=== PATIENT | male | born 1955 | race Caucasian/White ===

== ENCOUNTER 2018-02-26 08:02 | Inpatient (IN) | payer BC ==
[~2018-02-26] VITALS: Ht 175.5 cm; Wt 134.0 kg
[2018-02-26] VITALS (19 sets, daily range): BP systolic 74–139; BP diastolic 36–77; PULSE 48–126; RESP 26–44; TEMP 95.3–100.6; O2SAT 55–100
[2018-02-26] MEDS ORDERED: PROPOFOL 500 MG/50 ML INJ 50 ML ONE (08:09)
--- NOTE | 2018-02-26 08:30 | RADRPT ---
EXAM DATE/TIME: 02/26/2018 08:14 [facility] COMPARISON: No previous studies available for comparison. INDICATIONS : ET tube placement, unresponsive. MEDICAL HISTORY : Unresponsive SURGICAL HISTORY : Unresponsive ENCOUNTER: Initial ACUITY: 1 day PAIN SCORE: Non-responsive. LOCATION: Bilateral chest FINDINGS: AP supine portable view the chest demonstrates an endotracheal tube with the tip 2 cm beyond the leve l of the clavicles 3 cm superior to the lizbeth. There is a nasogastric tube overlying the midline wit h the proximal port well above the level of the gastroesophageal junction. Recommend advancement by a pproximately 8 cm. The lungs are mildly hypoinflated but clear. Heart size appears grossly normal given degree of hypoin flation. Osseous structures are unremarkable. CONCLUSION: 1. Endotracheal tube overlying the trachea with the tip 2 cm down the level of the clavicles. 2. Nasogastric tube positioned over the midline esophagus with the proximal port well above the level of the gastroesophageal junction. Recommend interval advancement at least 8 cm. 3. No evidence of acute cardiac pulmonary disease.. Aisha Brannon MD on February 26, 2018 at 8:25 Board Certified Radiologist. This report was verified electronically.
[2018-02-26 08:42] LABS: AUTOMATED NEUTROPHIL # 6.6 TH/MM3 (1.8-7.7); BASOPHIL # 0.1 TH/MM3 (0-0.2); BASOPHIL % 0.3 % (0.0-2.0); EOSINOPHIL # 0.1 TH/MM3 (0-0.4); EOSINOPHIL % 0.9 % (0.0-4.0); HEMATOCRIT 55.5 % (39.0-51.0); HEMOGLOBIN 18.2 GM/DL (13.0-17.0); LYMPH % 48.4 % (9.0-44.0); LYMPHOCYTE # 7.5 TH/MM3 (1.0-4.8); MEAN CELL VOLUME 97.6 FL (80.0-100.0); MEAN CORPUSCULAR HGB CONC 32.8 % (32.0-36.0); MEAN PLATELET VOLUME 10.7 FL (7.0-11.0); MONOCYTE # 1.2 TH/MM3 (0-0.9); NEUT % 42.4 % (16.0-70.0); PLATELET COUNT 143 TH/MM3 (150-450); RED BLOOD COUNT 5.69 MIL/MM3 (4.50-5.90); RED CELL DISTRIBUTION WIDTH 13.9 % (11.6-17.2); WHITE BLOOD COUNT 15.6 TH/MM3 (4.0-11.0)
[2018-02-26 08:47] LABS: ALT (GPT) 91 U/L (12-78)
[2018-02-26 08:53] LABS: ALBUMIN 3.8 GM/DL (3.4-5.0); ALKALINE PHOSPHATASE 101 U/L (45-117); AST (GOT) 65 U/L (15-37); BICARBONATE 14.6 MEQ/L (21.0-32.0); BLOOD UREA NITROGEN 13 MG/DL (7-18); CALCIUM 9.1 MG/DL (8.5-10.1); CHLORIDE 103 MEQ/L (98-107); CREATININE 1.35 MG/DL (0.60-1.30); GLOMERULAR FILTRATION RATE 53 ML/MIN (>89); GLUCOSE,RANDOM 306 MG/DL (74-106); SODIUM (NA) 137 MEQ/L (136-145); TOTAL BILIRUBIN ADULT 0.6 MG/DL (0.2-1.0); TOTAL PROTEIN 7.4 GM/DL (6.4-8.2); TROPONIN I LESS THAN 0.02 NG/ML (0.02-0.05)
[2018-02-26 09:45] LABS: BANDS 2 % (0-6); BASOPHILS 2 % (0-2); METAMYELOCYTES 2 % (0-1); MONOCYTES 7 % (0-8); NEUTROPHIL # MANUAL DIFF 6.7 TH/MM3 (1.8-7.7); POLYS (SEG NEUTROPHILS) 39 % (16-70)
[2018-02-26 09:46] LABS: LYMPHOCYTES 46 % (9-44); SMUDGE CELLS PRESENT PRESENT
[2018-02-26] MEDS ORDERED: TERBUTALINE INJ 1 MG/ML AMP SQ PRN ×3 (10:15→23:00)
[2018-02-26] MEDS ORDERED: CHLORHEXIDINE GLUCONATE 2 % 1 PACK (2 CLOTHS) TOP PRN (10:15)
[2018-02-26] MEDS ORDERED: NURSING INFORMATION XX SCH (10:15)
[2018-02-26] MEDS ORDERED: MIDAZOLAM 100 MG/100 ML INJ 100 ML IV PRN (10:15)
[2018-02-26] MEDS ORDERED: RESP: ALBUTEROL 2.5 MG/IPRATROPIUM 0.5 MG NEB (PRN) INH (10:15)
[2018-02-26] MEDS ORDERED: MORPHINE SULFATE 4 MG/ML INJ IV PUSH PRN (10:15)
--- NOTE | 2018-02-26 10:18 | PD.PROCEDR ---
Central Line Procedure REASON FOR PROCEDURE Central venous access PROCEDURE PERFORMED Central line placement: Right femoral central line placment CONSENT Emergency procedure during cardiac arrest ANESTHESIA Local injection of 1% Lidocaine DESCRIPTION OF THE PROCEDURE The patient was placed in appropriate position. The area was exposed and cleansed with ChloraPrep, times two. Unable to use. Precautions due to emergency nature of the situation and cardiac arrest, except sterile gloves, cap and mask. On single attempt, the introducer needle was inserted with negative pressure in syringe and venous flash was obtained. The guide wire was then advanced without any restriction and the needle was removed. The dilator was used without any complications. Using Seldinger technique the 20 CM 7F triple lumen catheter was advanced over the guide wire to a depth of 18centimeters. The guide wire was removed. All ports were aspirated with dark venous blood return and flushed easily with sterile saline. All ports were capped. Antibiotic disc was placed around central line at puncture site. The central line was secured to the skin with two interrupted 2.0 silk sutures. The area was bandaged with sterile see-through central line bandage. COMPLICATIONS: No apparent complications ESTIMATED BLOOD LOSS: Less than 1 cc. Teddy Whipple MD February 26, 2018 10:17
--- NOTE | 2018-02-26 10:21 | PD.PROCEDR ---
Procedure Note Procedure Procedure- US guided right femoral arterial line placement indication- invasive hemodynamic monitoring, severe cardiogenic and obstructive shock Description of procedure: The patient was placed in supine, position. The area was exposed and cleansed with ChloraPrep, times two. Unable to use full sterile precautions except face mask, and sterile gloves. US was used to visualize right femoral artery On single attempt, the introducer needle was inserted with negative pressure in syringe and arterial flash was obtained. The guide wire was then advanced without any restriction and the needle was removed. Using Seldinger technique the arterial catheter was advanced over the guide wire. The guide wire was removed. Good arterial waveform obtained. Antibiotic disc was placed around arterial line at puncture site. The arterial line was secured to the skin with one interrupted silk sutures. The area was bandaged with sterile see-through central line bandage. Teddy Whipple MD February 26, 2018 10:21
[2018-02-26 10:27] LABS: BILIRUBIN, URINE NEG (NEG); BLOOD, URINE NEG (NEG); GLUCOSE,URINE 1000 mg/dL (NEG); KETONE, URINE TRACE mg/dL (NEG); MUCUS URINE FEW /lpf (OCC); NITRITE,URINE NEG (NEG); SPERM, URINE RARE; TRANSITIONAL EPI CELLS, URINE <1 /hpf; URINE COLOR LIGHT-YELLOW (YELLW/STRAW); URINE LEUKOCYTE ESTERASE NEG (NEG)
[2018-02-26] MEDS ORDERED: MIDAZOLAM HCL 5 MG/ML VIAL (1 ML) ONE ×2 (10:38→12:57)
[2018-02-26] MEDS ORDERED: HEPARIN 25,000 UNITS-D5W 250 ML - PREMIX IV PRN ×2 (10:45→15:30)
[2018-02-26] MEDS: EPINEPHrine (1:1000) INJ 2 MG in DEXTROSE 5% IN WATER INJ 250 ML IV PRN ×10 (11:00→23:49)
[2018-02-26] MEDS ORDERED: CALCIUM CHLORIDE INJ 2 GM in DEXTROSE 5% IN WATER 100ML INJ 100 ML IV ONE ×2 (11:15)
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
[2018-02-26] MEDS: EPOPROSTENOL NEB SOLUTION 50 NG/KG/MIN 100 ML NEB SCH ×2 (11:25)
[2018-02-26] MEDS: SODIUM BICARBONATE 8.4% INJ 150 MEQ in WATER STERILE FOR INJ 850 ML IV SCH ×3 (11:26→23:49)
[2018-02-26] MEDS ORDERED: SUCCINYLCHOLINE CHLORIDE 200 MG/10 ML VIAL IV PUSH ONE (11:45)
[2018-02-26] MEDS ORDERED: ETOMIDATE 20 MG/10 ML VIAL IV PUSH ONE (11:45)
[2018-02-26] MEDS ORDERED: NOREPINEPHRINE-DEXTROSE DRIP 250 ML IV ONE (11:59)
[2018-02-26] MEDS: MIDAZOLAM 50 MG/50 ML INJ 50 ML IV PRN ×2 (12:02→20:42)
[2018-02-26] MEDS: PHENYLEPHRINE INJ 40 MG in DEXTROSE 5% IN WATE 500 ML INJ 496 ML IV PRN ×10 (12:02→23:49)
[2018-02-26 12:15] LABS: AUTOMATED NEUTROPHIL # 23.1 TH/MM3 (1.8-7.7); BASOPHIL # 0.3 TH/MM3 (0-0.2); EOSINOPHIL # 0.2 TH/MM3 (0-0.4); EOSINOPHIL % 0.6 % (0.0-4.0); HEMATOCRIT 47.3 % (39.0-51.0); HEMOGLOBIN 15.2 GM/DL (13.0-17.0); LYMPH % 24.1 % (9.0-44.0); LYMPHOCYTE # 7.8 TH/MM3 (1.0-4.8); MEAN CELL VOLUME 98.4 FL (80.0-100.0); MEAN CORPUSCULAR HEMOGLOBIN 31.5 PG (27.0-34.0); MEAN PLATELET VOLUME 9.8 FL (7.0-11.0); MONO % 3.4 % (0.0-8.0); MONOCYTE # 1.1 TH/MM3 (0-0.9); NEUT % 70.9 % (16.0-70.0); PLATELET COUNT 125 TH/MM3 (150-450); RED BLOOD COUNT 4.81 MIL/MM3 (4.50-5.90); RED CELL DISTRIBUTION WIDTH 14.3 % (11.6-17.2); WHITE BLOOD COUNT 32.6 TH/MM3 (4.0-11.0)
[2018-02-26 12:50] LABS: BANDS 11 % (0-6); CORRECTED NUCLEATED RBC 2 /100 WBC (0-0); LYMPHOCYTES 26 % (9-44); MONOCYTES 5 % (0-8); MYELOCYTES 2 % (0-0); NEUTROPHIL # MANUAL DIFF 22.5 TH/MM3 (1.8-7.7); NUCLEATED RED BLOOD CELL 2 (0-0); POLYS (SEG NEUTROPHILS) 56 % (16-70)
[2018-02-26 12:52] LABS: SMUDGE CELLS PRESENT PRESENT
[2018-02-26] MEDS: MILRINONE INJ 20 MG in SODIUM CHLORIDE 0.9% INJ 80 ML IV SCH ×2 (12:55→20:41)
[2018-02-26] MEDS: RESP: ALBUTEROL 2.5 MG/IPRATROPIUM 0.5 MG NEB (SCH) INH ×3 (12:57→20:11)
[2018-02-26 12:59] LABS: ALBUMIN 2.8 GM/DL (3.4-5.0); ALKALINE PHOSPHATASE 166 U/L (45-117); ALT (GPT) 1648 U/L (12-78); AST (GOT) 1759 U/L (15-37); BICARBONATE 16.2 MEQ/L (21.0-32.0); BLOOD UREA NITROGEN 18 MG/DL (7-18); CALCIUM 8.8 MG/DL (8.5-10.1); CHLORIDE 100 MEQ/L (98-107); CREATININE 1.94 MG/DL (0.60-1.30); GLOMERULAR FILTRATION RATE 35 ML/MIN (>89); GLUCOSE,RANDOM 393 MG/DL (74-106); MAGNESIUM 2.5 MG/DL (1.5-2.5); SODIUM (NA) 141 MEQ/L (136-145); TOTAL PROTEIN 5.6 GM/DL (6.4-8.2)
[2018-02-26] MEDS: FAMOTIDINE 20 MG/2 ML VIAL IV PUSH SCH ×2 (13:07→19:59)
--- NOTE | 2018-02-26 13:35 | ECHRPT ---
Indication: Pulmonary Embolism CONCLUSIONS The left ventricular systolic function is normal with an estimated ejection fraction of 55%. Mild concentric left ventricular hypertrophy. Normal left ventricular size. The right ventricle is severely dilated. The right ventricular systoilc function is severely decreased. There is moderate tricuspid regurgitation. The estimated pulmonary arterial pressure is 67 mmHg. The inferior vena cava is dilated. BP: 102 / 53 HR: Rhythm: MEASUREMENTS (Male / Female) Normal Values Technical Quality:Technically difficult study 2D ECHO LV Diastolic Diameter PLAX 3.9 cm 4.2 - 5.9 / 3.9 - 5.3 cm LV Systolic Diameter PLAX 3.0 cm IVS Diastolic Thickness 1.3 cm 0.6 - 1.0 / 0.6 - 0.9 cm LVPW Diastolic Thickness 1.3 cm 0.6 - 1.0 / 0.6 - 0.9 cm LV Relative Wall Thickness 0.7 RV Internal Dim ED PLAX 4.0 cm LVOT Diameter 2.1 cm LA Systolic Diameter LX 3.0 cm 3.0 - 4.0 / 2.7 - 3.8 cm M-MODE Aortic Root Diameter MM 2.9 cm LA Systolic Diameter MM 3.9 cm LA Ao Ratio MM 1.3 AV Cusp Separation MM 2.1 cm DOPPLER AV Peak Velocity 117.0 cm/s AV Peak Gradient 5.5 mmHg LVOT Peak Velocity 90.3 cm/s LVOT Peak Gradient 3.3 mmHg AV Area Cont Eq pk 2.7 cm MV Area PHT 3.7 cm Mitral E Point Velocity 49.7 cm/s Mitral A Point Velocity 69.4 cm/s Mitral E to A Ratio 0.7 TR Peak Velocity 376.0 cm/s TR Peak Gradient 56.6 mmHg Right Atrial Pressure 10.0 mmHg Pulmonary Artery Systolic Pressu 66.6 mmHg Right Ventricular Systolic Press 66.6 mmHg FINDINGS LEFT VENTRICLE The left ventricular systolic function is low normal with an estimated ejection fraction of 55%. Mild concentric left ventricular hypertrophy. Normal left ventricular size. RIGHT VENTRICLE The right ventricle is severely dilated. The right ventricular systoilc function is severely decreased. LEFT ATRIUM The left atrial size is normal. RIGHT ATRIUM The right atrial size is normal. ATRIAL SEPTUM Normal atrial septal thickness without atrial level shunting by limited color doppler interrogation. AORTA The aortic root and proximal ascending aorta are normal in size on limited imaging. MITRAL VALVE Structurally normal mitral valve. No mitral valve stenosis or regurgitation. AORTIC VALVE Trileaflet aortic valve. No aortic valve stenosis or regurgitation. TRICUSPID VALVE Structurally normal tricuspid valve. There is moderate tricuspid regurgitation. The estimated pulmonary arterial pressure is 66.6 mmHg. PULMONARY VALVE No pulmonary valve regurgitation or stenosis. VESSELS The inferior vena cava is dilated. PERICARDIUM No pericardial effusion. Jenni Sheriff MD, FACC (Electronically Signed) Final Date:26 Feb 2018 13:33
[2018-02-26] MEDS: NOREPINEPHRINE 4 MG/D5W 250 ML IV PRN ×4 (14:29→22:20)
[2018-02-26] MEDS ORDERED: ROCURONIUM INJ 50 MG/5 ML VIAL ONE (15:09)
[2018-02-26] MEDS ORDERED: SODIUM BICARBONATE 8.4% INJ 50 MEQ/50 ML SYR ONE ×3 (15:11→17:21)
--- NOTE | 2018-02-26 15:30 | RADRPT ---
EXAM DATE/TIME: 02/26/2018 13:10 [facility] COMPARISON: No previous studies available for comparison. INDICATIONS : Bilateral leg swelling. MEDICAL HISTORY : Hypertension. Diabetes. SURGICAL HISTORY : None. ENCOUNTER: Initial ACUITY: 1 day PAIN SCORE: 0/10 LOCATION: Bilateral legs. TECHNIQUE: Venous ultrasound of the left and right leg was performed from the inguinal ligament to the proximal calf. Real-time, color Doppler and spectral tracing, compression and augmentation techniques were us ed. FINDINGS: RIGHT LEG: There is eccentric thrombus which is nearly occlusive in the right common femoral vein, extending to some extent into the proximal deep femoral vein and superficial femoral vein however not propagating down the legs any additional significant extent. LEFT LEG: There is normal compressibility of the deep venous system from the inguinal region to the proximal ca lf. No echogenic clot is seen in the lumen of the common femoral, femoral, popliteal, and posterior tibial veins. CONCLUSION: Near occlusive thrombus in the right common femoral vein. Left leg negative for DVT Sarabjit Arias MD on February 26, 2018 at 15:24 Board Certified Radiologist. This report was verified electronically.
--- NOTE | 2018-02-26 15:44 | RADRPT ---
EXAM DATE/TIME: 02/26/2018 14:10 [facility] COMPARISON: No previous studies available for comparison. INDICATIONS : Bilateral arm swelling. MEDICAL HISTORY : Hypertension. Diabetes. SURGICAL HISTORY : None. ENCOUNTER: Initial ACUITY: 1 day PAIN SCORE: 0/10 LOCATION: Bilateral arms. FINDINGS: RIGHT UPPER EXTREMITY: There is spontaneous flow documented in the brachial, basilic, cephalic, axillary, and subclavian vei ns. The vessels are compressible and augmentation response is documented. No filling defects are se en. The flow is phasic with respiration. Direction of flow in the jugular vein is caudal. LEFT UPPER EXTREMITY: There is spontaneous flow documented in the brachial, basilic, cephalic, axillary, and subclavian vei ns. The vessels are compressible and augmentation response is documented. No filling defects are se en. The flow is phasic with respiration. Direction of flow in the jugular vein is caudal. CONCLUSION: Negative for deep venous thrombosis. Hoang Garcia MD FACR on February 26, 2018 at 15:41 Board Certified Radiologist. This report was verified electronically.
[2018-02-26] MEDS ORDERED: GLUCAGON 1 MG/ML VIAL OTHER PRN (15:45)
[2018-02-26] MEDS ORDERED: DEXTROSE 50% IN WATER 50 ML VIAL(D50) IV PUSH PRN ×2 (15:45→18:00)
--- NOTE | 2018-02-26 16:56 | EKG ---
Date Performed: 02/26/2018 Time Performed: 10:53:46 PTAGE: 62 years EKG: SINUS TACHYCARDIA WITH SHORT IL INTERVAL WITH OCCASIONAL VENTRICULAR PREMATURE COMPLEXES MO DERATE INTRAVENTRICULAR CONDUCTION DELAY NONSPECIFIC ST DEPRESSION ABNORMAL ECG NO PREVIOUS TRACING DOCTOR: Jenni Sheriff Interpretating Date/Time 02/26/2018 16:55:16
[2018-02-26] MEDS ORDERED: MEDIUM DOSE INSULIN NOVOLIN REGULAR SUPPLEMENTAL SCALE SQ SCH (17:00)
[2018-02-26] MEDS ORDERED: EPINEPHrine HCL (1:10,000) 1 MG/10 ML SYRINGE ONE (17:17)
[2018-02-26] MEDS ORDERED: ROCURONIUM INJ 50 MG/5 ML VIAL IV ONE (17:30)
[2018-02-26] MEDS ORDERED: INSULIN HUMAN REGULAR 1,000 UNITS/10 ML VIAL IV PUSH STA (17:55)
[2018-02-26] MEDS ORDERED: SODIUM CHLOR 0.9% 1000 ML INJ 2,000 ML IV ONE (18:00)
[2018-02-26] MEDS ORDERED: MISC INFORMATION OTHER ONE (18:00)
[2018-02-26] MEDS ORDERED: SODIUM BICARBONATE 8.4% INJ 50 MEQ/50 ML SYR IV PUSH ONE (18:00)
[2018-02-26 18:05] LABS: AUTOMATED NEUTROPHIL # 15.5 TH/MM3 (1.8-7.7); BASOPHIL # 0.1 TH/MM3 (0-0.2); BASOPHIL % 0.3 % (0.0-2.0); EOSINOPHIL % 0.1 % (0.0-4.0); HEMATOCRIT 38.9 % (39.0-51.0); LYMPH % 8.4 % (9.0-44.0); LYMPHOCYTE # 1.5 TH/MM3 (1.0-4.8); MEAN CELL VOLUME 95.4 FL (80.0-100.0); MEAN CORPUSCULAR HEMOGLOBIN 31.9 PG (27.0-34.0); MEAN CORPUSCULAR HGB CONC 33.4 % (32.0-36.0); MEAN PLATELET VOLUME 9.4 FL (7.0-11.0); MONOCYTE # 0.9 TH/MM3 (0-0.9); NEUT % 86.2 % (16.0-70.0); PLATELET COUNT 128 TH/MM3 (150-450); RED BLOOD COUNT 4.08 MIL/MM3 (4.50-5.90); RED CELL DISTRIBUTION WIDTH 13.4 % (11.6-17.2); WHITE BLOOD COUNT 17.9 TH/MM3 (4.0-11.0)
[2018-02-26 18:27] LABS: ALBUMIN 2.2 GM/DL (3.4-5.0); BICARBONATE 18.9 MEQ/L (21.0-32.0); BLOOD UREA NITROGEN 24 MG/DL (7-18); CALCIUM 8.1 MG/DL (8.5-10.1); CHLORIDE 100 MEQ/L (98-107); CREATININE 2.56 MG/DL (0.60-1.30); GLOMERULAR FILTRATION RATE 25 ML/MIN (>89); MAGNESIUM 1.6 MG/DL (1.5-2.5); SODIUM (NA) 140 MEQ/L (136-145)
[2018-02-26 18:38] LABS: ALKALINE PHOSPHATASE 121 U/L (45-117); ALT (GPT) 1288 U/L (12-78); AST (GOT) 1622 U/L (15-37); TOTAL BILIRUBIN ADULT 0.8 MG/DL (0.2-1.0); TOTAL PROTEIN 4.3 GM/DL (6.4-8.2)
[2018-02-26 18:40] LABS: GLUCOSE,RANDOM 473 MG/DL (74-106)
[2018-02-26] MEDS: INSULIN REGULAR (IV INFUSION) 100 UNITS in SODIUM CHLORIDE 0.9% INJ 99 ML IV PRN (18:44)
[2018-02-26 19:07] LABS: BANDS 9 % (0-6); CORRECTED NUCLEATED RBC 2 /100 WBC (0-0); LYMPHOCYTES 6 % (9-44); MONOCYTES 1 % (0-8); NEUTROPHIL # MANUAL DIFF 16.6 TH/MM3 (1.8-7.7); NUCLEATED RED BLOOD CELL 2 (0-0); POLYS (SEG NEUTROPHILS) 82 % (16-70); PROMYELOCYTES 2 % (0-0)
[2018-02-26 19:08] LABS: TOXIC GRANULATION 1+ (NORMAL)
[2018-02-26] MEDS ORDERED: CHLORHEXIDINE 0.12% (ORAL KIT) 15 ML CUP MT SCH (20:00)
[2018-02-26 22:59] LABS: HEMATOCRIT 34.1 % (39.0-51.0); HEMOGLOBIN 11.4 GM/DL (13.0-17.0)
[2018-02-26] MEDS ORDERED: ALBUMIN 5% INJ 500 ML IV ONE (23:00)
[2018-02-26] MEDS ORDERED: DOPamine INJ 800 MG in DEXTROSE 5% IN WATER INJ 230 ML IV PRN ×2 (23:00)
[2018-02-27] VITALS (16 sets, daily range): BP systolic 0–128; BP diastolic 0–62; PULSE 0–154; RESP 28–32; TEMP 99.5–100.7; O2SAT 95–100
[2018-02-27] MEDS: RESP: ALBUTEROL 2.5 MG/IPRATROPIUM 0.5 MG NEB (SCH) INH ×4 (00:12→11:47)
[2018-02-27] MEDS: NOREPINEPHRINE 4 MG/D5W 250 ML IV PRN ×5 (00:58→12:03)
[2018-02-27] MEDS: EPINEPHrine (1:1000) INJ 2 MG in DEXTROSE 5% IN WATER INJ 250 ML IV PRN ×10 (01:30→12:04)
[2018-02-27] MEDS: MIDAZOLAM 50 MG/50 ML INJ 50 ML IV PRN (02:01)
[2018-02-27] MEDS: EPOPROSTENOL NEB SOLUTION 50 NG/KG/MIN 100 ML NEB SCH ×2 (02:07)
[2018-02-27] MEDS: PHENYLEPHRINE INJ 40 MG in DEXTROSE 5% IN WATE 500 ML INJ 496 ML IV PRN ×10 (02:10→12:07)
[2018-02-27] MEDS: INSULIN REGULAR (IV INFUSION) 100 UNITS in SODIUM CHLORIDE 0.9% INJ 99 ML IV PRN ×2 (02:43→12:06)
[2018-02-27 02:45] LABS: AUTOMATED NEUTROPHIL # 13.2 TH/MM3 (1.8-7.7); BASOPHIL % 0.2 % (0.0-2.0); HEMATOCRIT 28.6 % (39.0-51.0); HEMOGLOBIN 9.6 GM/DL (13.0-17.0); LYMPH % 12.8 % (9.0-44.0); LYMPHOCYTE # 2.1 TH/MM3 (1.0-4.8); MEAN CELL VOLUME 94.8 FL (80.0-100.0); MEAN CORPUSCULAR HEMOGLOBIN 31.7 PG (27.0-34.0); MEAN CORPUSCULAR HGB CONC 33.5 % (32.0-36.0); MEAN PLATELET VOLUME 9.9 FL (7.0-11.0); MONO % 7.7 % (0.0-8.0); MONOCYTE # 1.3 TH/MM3 (0-0.9); NEUT % 79.3 % (16.0-70.0); PLATELET COUNT 99 TH/MM3 (150-450); RED BLOOD COUNT 3.02 MIL/MM3 (4.50-5.90); RED CELL DISTRIBUTION WIDTH 13.3 % (11.6-17.2); WHITE BLOOD COUNT 16.7 TH/MM3 (4.0-11.0)
[2018-02-27 03:00] LABS: INTERNATIONAL NORMALIZED RATIO 1.9 RATIO; PROTHROMBIN TIME - PATIENT 19.7 SEC (9.8-11.6)
[2018-02-27 03:20] LABS: ALBUMIN 2.1 GM/DL (3.4-5.0); BICARBONATE 16.8 MEQ/L (21.0-32.0); CALCIUM 6.7 MG/DL (8.5-10.1); CALCIUM-PROTEIN CORRECTED 8.4 MG/DL (8.5-10.1); CREATININE 3.49 MG/DL (0.60-1.30); TOTAL BILIRUBIN ADULT 0.7 MG/DL (0.2-1.0); TOTAL PROTEIN 3.9 GM/DL (6.4-8.2)
[2018-02-27] MEDS ORDERED: CHLORHEXIDINE GLUCONATE 2 % 1 PACK (2 CLOTHS) TOP SCH (04:00)
--- NOTE | 2018-02-27 05:21 | RADRPT ---
EXAM DATE/TIME: 02/27/2018 05:02 [facility] COMPARISON: CHEST SINGLE AP, February 26, 2018, 8:14. INDICATIONS : Shortness of breath, possible pulmonary disease. MEDICAL HISTORY : Hypertension. Diabetes SURGICAL HISTORY : None. ENCOUNTER: Subsequent ACUITY: 2 days PAIN SCORE: Non-responsive. LOCATION: Bilateral chest FINDINGS: A single view of the chest demonstrates endotracheal tube in good position. Nasogastric tube has been removed. Minimal basilar atelectasis. No pneumothorax or effusion. CONCLUSION: 1. Endotracheal tube in good position. Minimal basilar atelectasis. Sourav Hi MD on February 27, 2018 at 5:16 Board Certified Radiologist. This report was verified electronically.
[2018-02-27 05:28] LABS: BANDS 23 % (0-6); CORRECTED NUCLEATED RBC 2 /100 WBC (0-0); LYMPHOCYTES 7 % (9-44); METAMYELOCYTES 2 % (0-1); MONOCYTES 11 % (0-8); NEUTROPHIL # MANUAL DIFF 13.7 TH/MM3 (1.8-7.7); NUCLEATED RED BLOOD CELL 2 (0-0); POLYS (SEG NEUTROPHILS) 57 % (16-70)
[2018-02-27] MEDS: MILRINONE INJ 20 MG in SODIUM CHLORIDE 0.9% INJ 80 ML IV SCH (05:52)
[2018-02-27] MEDS: SODIUM BICARBONATE 8.4% INJ 150 MEQ in WATER STERILE FOR INJ 850 ML IV SCH (06:32)
[2018-02-27] MEDS ORDERED: fentaNYL DRIP 250 ML IV PRN (11:00)
[2018-02-27] MEDS ORDERED: SODIUM CHLOR 0.9% 250 ML INJ 250 ML IV ONE (11:00)
--- NOTE | 2018-02-27 12:48 | HHI.CCPN ---
Subjective Remarks/Hospital Course 02/26: Patient is a 62-year-old obese male with past medical history significant for diabetes and hypertension who presented to the emergency department via EMS for acute onset severe shortness of breath. He recently drove from [place] to [facility] on , according to he ws having some issues with shortness of breath a week ago. There were getting ready to go back home today when he had acutely developed shortness of breath. It was very severe, and patient was profoundly distressed and 911 was called. He presented to the emergency department with an oxygen saturation of 73% heart rate in 120s and respiratory rate of 44 breaths per minute. Emergently intubated by Dr. Cook and placed on mechanical ventilation but the hypoxemia persisted with oxygen saturation varying from low 60s to mid 70s. Dr. Cook called me and asked my opinion about giving TPA for suspected PE. I recommended getting STAT CT pulmonary angiogram first. While patient was being prepared for CT angiogram , he developed cardiac arrest and I was immediately informed about this. I went to the bedside of the patient in the ED to assist with further management. I ordered 50 mg of TPA bolus stat followed by 50 mg infusion. His clinical presentation was very consistent with massive PE and cardiac arrest is most likely from Saddle PE causing obstructive and cardiogenic shock. Patient continued to receive CPR and ACLS protocol was followed while infusing TPA. I also placed a right femoral arterial line and central line, ACLS medications and CPR was continued (Please see Dr. Cook's note and ER code sheet for details). In approximately 10-15 minutes we had return of spontaneous circulation. Patient was started on epinephrine infusion, multiple doses of IV bicarb was given for profound metabolic acidosis. Initial ABG showed 6.93/60/ 45. After patient was marginally stabilized plan was to get an emergency CTA and also CT of the brain and then transfer to ICU. Dr. Cook accompanied the patient to the CT. Unfortunately he developed cardiac arrest again in the CT room and they were unable to complete imaging studies. Patient was emergently moved to the ICU where I met him again. ACLS protocol was followed again in the ICU, see code sheet for detail. Patient received further doses of IV bicarb and calcium in addition to ACLS meds. After return of spontaneous circulation, epinephrine was increased to 20 mcg/min Levophed was added and titrated up to 20 mics per minute. I did a bedside echo which showed severe RV dilation and RV systolic function severely reduced, consistent with clinical diagnosis of massive PE. A stat echo is pending. Post TPA I gave orders for continuing heparin infusions 1000 units per hour without titration. was updated several times during and after multiple cardiac arrest. I explained to her the prognosis is grave. His pupils are dilated, but patient did receive Atropine IV in ED. 02/27: Remains sedated, orally intubated on mechanical ventilation on high doses of pressors. Remains hypotensive. Bleeding from mouth noted. Reportedly had bitten his tongue last night. Objective Vital Signs Date Time Temp Pulse Resp B/P (MAP) Pulse Ox O2 Delivery O2 Flow Rate FiO2 02/27/18 12:07 104 59/25 02/27/18 11:47 100 50 02/27/18 07:00 100.0 28 02/26/18 08:08 Bag Valve 15.00 Intake and Output 02/27/18 02/27/18 02/28/18 08:00 16:00 00:00 Intake Total 4904 ml Output Total 0 ml Balance 4904 ml Result Diagram: 02/27/18 0230 02/27/18 0230 Other Results Laboratory Tests Test 02/26/18 14:35 02/27/18 07:45 Blood Gas Puncture Site ART LINE ART LINE Blood Gas Patient Temperature 98.6 98.6 Blood Gas HCO3 13 mmol/L (22-26) 16 mmol/L (22-26) Blood Gas Base Excess -12.4 mmol/L (-2-2) -8.0 mmol/L (-2-2) Blood Gas Oxygen Saturation 98 % (90-100) 96 % (90-100) Arterial Blood pH 7.31 (7.380-7.420) 7.43 (7.380-7.420) Arterial Blood Partial Pressure CO2 26 mmHg (38-42) 24 mmHg (38-42) Arterial Blood Partial Pressure O2 371 mmHg (61-120) 90 mmHg (61-120) Arterial Blood Oxygen Content 22.1 Vol % (12.0-20.0) 11.6 Vol % (12.0-20.0) Arterial Blood Carboxyhemoglobin 0.5 % (0-4) 0.8 % (0-4) Arterial Blood Methemoglobin 1.5 % (0-2) 1.4 % (0-2) Blood Gas Hemoglobin 15.5 G/DL (12.0-16.0) 8.5 G/DL (12.0-16.0) Oxygen Delivery Device VENTILATOR VENTILATOR Blood Gas Ventilator Setting Blood Gas Inspired Oxygen 80 % 50 % Imaging Chest x-ray showed no evidence of acute cardiopulmonary disease Objective Remarks Drips: Epinephrine/Atnonio-Synephrine/norepinephrine/dopamine/milrinone/heparin/ Versed/bicarb drip Inhaled Flolan via nebulizer HEENT/ Neuro: Sedated, orally intubated, Pallor present, no icterus, tongue with hematoma noted. Neck: No JVD Chest/Pulm: on mech vent, good air entry bilaterally, no wheezing or crackles. Scattered rhonchi CVS: S1-S2 regular, no murmur GI/abdomen: soft, nontender, bowel sounds sluggish Extremities: warm bilaterally, bilateral edema A/P Assessment and Plan NEURO: Acute encephalopathy Possible anoxic brain injury Tongue injury from biting -Unable to do CT of the brain due to hemodynamic instability -Currently patient is unresponsive, pupils are dilated but reactive and patient has received atropine -On Versed gtt. Add fentanyl for comfort. RESP: Massive pulmonary embolism (Clinically, Echo with RV dilation, Elevated D Dimer) Acute hypoxemic and hypercarbic respiratory failure -Emergently intubated in the ED for refractory hypoxemia -Status post emergent TPA 50 mg IV push followed by 50 mg infusion for cardiac arrest following massive PE (clinical diagnosis initially) -Started on heparin thousand units per hour, but had to be held due to bleeding from tongue laceration, later placed on fixed dose heparin. -Patient's hypoxemia remained refractory to mechanical ventilation until TPA bolus was given and infusion was completed -Bedside echo shows RV dilated and RV dysfunction, this along with clinical presentation and elevated d-dimer of 7.31 consistent with massive PE -Continue vent support with PC/AC, adjustment ventilation for acidosis, ventilator bundle -Continue Flolan at 50,000 ngkg//min -DuoNeb every 6 hours scheduled and as needed -Serial ABGs CV: PEA arrest/Asystole secondary to massive PE Refractory shock, cardiogenic and obstructive Severe lactic acidosis -Received multiple crystalloid boluses -Refractory shock was slightly improved after TPA -On epinephrine/Antonio-Synephrine/norepinephrine/dopamine/milrinone drips at high doses to maintain blood pressure. - continue Flolan --Remains hypotensive. Being given fluid bolus and 2 units PRBCs this morning - Castillo Trac monitoring -See ER Code sheets for details of Code Blue GI: -N.p.o., IV famotidine -OG tube to intermittent wall suction : Acute kidney injury -Monitor renal function closely. Alba catheter. -Monitor CMP daily ID: -Monitor closely for evidence of infection -Check sputum culture, no antibiotics at this time HEME: s/p TPA -Monitor CBC, CMP, coags -Holding IV heparin due to tongue laceration ENDO: Type 2 diabetes -Sliding scale insulin -Electrolyte replacement per protocol PROPH: -Avoid SCDs/KAMILAH due to possibility of DVT. IV heparin to be placed on hold due to tongue laceration and bleeding. IV famotidine LINES: -Right femoral arterial line and central line placed in the ED 02/26/2018 Discussed current critical status with patient's at bedside explained to her that patient appears to be deteriorating despite maximal therapy and is at high risk of going into cardiac arrest. She voiced understanding. She wishes to continue as full CODE STATUS while awaiting arrival of family members. Condition remains extremely critical with patient on high doses of pressors in refractory shock CC time 50 min discontinuously excluding procedures Stepan Espino MD February 27, 2018 12:48
[2018-02-27 12:54] LABS: BICARBONATE 13.4 MEQ/L (21.0-32.0); CREATININE 3.95 MG/DL (0.60-1.30)
[2018-02-27 13:00] LABS: CALCIUM 5.9 MG/DL (8.5-10.1)
[2018-02-27 13:15] LABS: CALCIUM-PROTEIN CORRECTED 7.9 MG/DL (8.5-10.1); TOTAL PROTEIN 3.1 GM/DL (6.4-8.2)
--- NOTE | 2018-02-27 13:19 | PD.PROCEDR ---
Procedure Note Procedure Procedure: CPR Preop diagnosis: Cardiac arrest-asystole Postop diagnosis: Same Description: Responded to call that patient went into cardiac arrest with asystole. CPR/ACLS protocol initiated. Patient had return of spontaneous circulation following 10 minutes of CPR/ACLS. Please see ACLS code sheet for details. Discussed with patient's was in the room at the time of the cardiac arrest and code. I explained to her that we did have a pulse and blood pressure however patient would most likely have recurrent cardiac arrest and she elected to make him DNR status with no further CPR or chest compressions to be done in case of another cardiac arrest. Prognosis extremely poor. Stepan Espino MD February 27, 2018 13:19
--- NOTE | 2018-02-27 20:42 | MG ---
cc: Mike Davalos MD ELECTROENCEPHALOGRAM RECORD NUMBER: [id number]. DESCRIPTION: Flat line type of appearance with EKG artifact occurring. No driving with photic stimulation. Single lead EKG showing sinus rhythm with multiple premature contractions and possible couplets. INTERPRETATION: Flat line type of appearance suggestive of severe global cortical injury. Clinical correlation. MD CONNOR Chopra/NELLY , 08:03 PM , 08:41 PM
--- NOTE | 2018-02-28 00:45 | PD ---
HPI Chief Complaint: Respiratory Distress Time Seen by Provider: 08:13 Travel History International Travel<30 days: No Contact w/Intl Traveler<30days: No Traveled to known affect area: No History of Present Illness HPI This is a 62-year-old male who was brought in by EMS in acute respiratory distress. The patient is a visitor here from [place]. According to the paramedics they arrived here on after driving down by car. Report was there is a 2-3 day car ride. The patient was packing his car to go back to [place] when he became suddenly short of breath. When paramedics arrived, they found the patient in severe respiratory distress. They placed 100% nonrebreather mask on the patient. Paramedics report the O2 sats remained in the 60s despite the oxygen. Patient reportedly was stating he could not breathe and was begging for them to put him to sleep. When the patient arrived he was in severe respiratory distress with 1 word sentences gasping for air. PFS Past Medical History Medical History: Unable to Obtain Cardiovascular Problems: Yes (HTN) Diabetes: Yes Tetanus Vaccination: Unknown Past Surgical History Surgical History: Unable to Obtain Social History Tobacco Use: No (Unknown) Allergies-Medications (Allergen,Severity, Reaction): Coded Allergies: Unable to Assess (Verified Allergy, Unknown, 02/26/18) Reported Meds & Prescriptions Reported Meds & Active Scripts Active Active Prescriptions or Reported Medications Unobtainable Review of Systems ROS Limitations: Clinical Condition (Patient severely short of breath and unable to answer questions) Except as stated in HPI: all other systems reviewed are Neg Physical Exam Narrative GENERAL: Well-developed male in severe respiratory distress. Patient was tachypneic and gasping for breath when he arrived. SKIN: Focused skin assessment warm/dry. HEAD: Atraumatic. Normocephalic. EYES: No scleral icterus. No injection or drainage. ENT: No nasal bleeding or discharge. Mucous membranes pink and moist. NECK: Trachea midline. Supple. CARDIOVASCULAR: Sinus tachycardia with a rate in the 130s. No obvious murmurs appreciated. RESPIRATORY: Accessory muscle use. Respiratory rate was in the high 30s and low 40s. No obvious rales appreciated. GASTROINTESTINAL: Abdomen soft, obese, non-tender, nondistended. MUSCULOSKELETAL: No obvious deformities. No clubbing. No cyanosis. No edema. NEUROLOGICAL: Awake and acutely tachypneic. No obvious cranial nerve deficits. Motor grossly within normal limits. Pressured single word speech. PSYCHIATRIC: Anxious appearing gasping for air. Data Data Last Documented VS Vital Signs Date Time Temp Pulse Resp B/P (MAP) Pulse Ox O2 Delivery O2 Flow Rate FiO2 02/26/18 08:15 62 100 02/26/18 08:10 66 74/41 (52) 02/26/18 08:08 Bag Valve 15.00 02/26/18 08:03 44 Orders Orders Propofol 500 Mg/50 Ml Inj (Diprivan 500 (02/26/18 08:09) Complete Blood Count With Diff (02/26/18 08:13) Comprehensive Metabolic Panel (02/26/18 08:13) B-Type Natriuretic Peptide (02/26/18 08:13) D-Dimer (02/26/18 08:13) Ckmb (Isoenzyme) Profile (02/26/18 08:13) Troponin I (02/26/18 08:13) Arterial Blood Gas (Abg) (02/26/18 08:13) Urinalysis - C+S If Indicated (02/26/18 08:13) Iv Access Insert/Monitor (02/26/18 08:13) Electrocardiogram (02/26/18 08:13) Ecg Monitoring (02/26/18 08:13) Oximetry (02/26/18 08:13) Oxygen Administration (02/26/18 08:13) Chest, Single Ap (02/26/18 08:13) Labs Laboratory Tests Test 02/26/18 08:20 02/26/18 08:44 White Blood Count 15.6 TH/MM3 Red Blood Count 5.69 MIL/MM3 Hemoglobin 18.2 GM/DL Hematocrit 55.5 % Mean Corpuscular Volume 97.6 FL Mean Corpuscular Hemoglobin 32.0 PG Mean Corpuscular Hemoglobin Concent 32.8 % Red Cell Distribution Width 13.9 % Platelet Count 143 TH/MM3 Mean Platelet Volume 10.7 FL Neutrophils (%) (Auto) 42.4 % Lymphocytes (%) (Auto) 48.4 % Monocytes (%) (Auto) 8.0 % Eosinophils (%) (Auto) 0.9 % Basophils (%) (Auto) 0.3 % Neutrophils # (Auto) 6.6 TH/MM3 Lymphocytes # (Auto) 7.5 TH/MM3 Monocytes # (Auto) 1.2 TH/MM3 Eosinophils # (Auto) 0.1 TH/MM3 Basophils # (Auto) 0.1 TH/MM3 CBC Comment AUTO DIFF Differential Total Cells Counted 100 Neutrophils % (Manual) 39 % Band Neutrophils % 2 % Lymphocytes % 46 % Monocytes % 7 % Eosinophils % 2 % Basophils % 2 % Neutrophils # (Manual) 6.7 TH/MM3 Metamyelocytes 2 % Differential Comment FINAL DIFF MANUAL Atypical Lymphocytes % Smudge Cells PRESENT Platelet Estimate NORMAL Platelet Morphology Comment ENLARGED Red Cell Morphology Comment NORMAL D-Dimer Quantitative (PE/DVT) 7.31 MG/L FEU Blood Urea Nitrogen 13 MG/DL Creatinine 1.35 MG/DL Random Glucose 306 MG/DL Total Protein 7.4 GM/DL Albumin 3.8 GM/DL Calcium Level 9.1 MG/DL Alkaline Phosphatase 101 U/L Aspartate Amino Transf (AST/SGOT) 65 U/L Alanine Aminotransferase (ALT/SGPT) 91 U/L Total Bilirubin 0.6 MG/DL Sodium Level 137 MEQ/L Potassium Level 4.6 MEQ/L Chloride Level 103 MEQ/L Carbon Dioxide Level 14.6 MEQ/L Anion Gap 19 MEQ/L Estimat Glomerular Filtration Rate 53 ML/MIN Total Creatine Kinase 65 U/L Troponin I LESS THAN 0.02 NG/ML B-Type Natriuretic Peptide 80 PG/ML Blood Gas Puncture Site ART LINE Blood Gas Patient Temperature 98.6 Blood Gas HCO3 12 mmol/L Blood Gas Base Excess -18.1 mmol/L Blood Gas Oxygen Saturation 53 % Arterial Blood pH 6.93 Arterial Blood Partial Pressure CO2 60 mmHg Arterial Blood Partial Pressure O2 45 mmHG Arterial Blood Oxygen Content 11.1 Vol % Arterial Blood Carboxyhemoglobin 0.0 % Arterial Blood Methemoglobin 0.6 % Blood Gas Hemoglobin 15.0 G/DL Oxygen Delivery Device AMBU BAG Blood Gas Liter Flow 15 L/M Blood Gas Inspired Oxygen 100 % MDM Medical Decision Making Medical Screen Exam Complete: Yes Emergency Medical Condition: Yes Differential Diagnosis Pulmonary embolus versus pneumonia versus pneumothorax versus ACS Narrative Course 62-year-old male presents in severe respiratory distress. The patient was immediately intubated using the CMAC. Despite intubation, patient's O2 sats remained in the 60s. Discussion with the on-call production recovery operator was made immediately upon arrival. There was a high suspicion for a pulmonary embolus when the patient arrived. The patient then went into cardiac arrest. Patient was given epi Afrin and 2 doses of IV bicarb. Pulse was regained. Patient then went back into cardiac arrest. Patient was then given 50 mg of TPA. CPR was initiated. By that time, Dr. Whipple, production recovery operator was at the bedside. He placed a right femoral line and a right femoral art line. Patient's blood pressure was noted to be extremely low. Patient also bradycardic. He was given 1 mg of atropine and another milligram of epinephrine. Patient was then placed on an epinephrine drip. Patient seem to stabilize somewhat with a pulse in the 120s however still remained with a low blood pressure. An attempt was made to bring the patient to the CT scan to screen his head and pulmonary vessels. As soon as we arrived at the CT scanner, patient went back into cardiac arrest. CPR was again initiated. Patient was given a milligram of epinephrine en route and when we arrived in the [facility], he regained a pulse again. She will then went back into cardiac arrest. The patient had received a total of 7 1 mg doses of epinephrine, 350 mEq of sodium bicarbonate, 1 mg of atropine, and 2 g of calcium chloride. Critical Care Narrative Aggregate critical care time was 90 minutes. Time to perform other separately billable procedures was not included in the critical care time. My time did not include minutes spent treating any other patients simultaneously or on activities that did not directly contribute to the patient's treatment. The services I provided to this patient were to treat and/or prevent clinically significant deterioration that could result in: I provided critical care services requiring my management, as noted below: Chart data review, documentation time, medication orders and management, vital sign assessments/reviewing monitor data, ordering and reviewing lab tests, ordering and interpreting/reviewing x-rays and diagnostic studies, care of the patient and discussion of the patient with the admitting physicians. Procedures Procedure Narrative Intubated emergently: INTUBATION: The patient was put in optimal position for the procedure. Rapid sequence intubation was initiated by me using 20 milligrams of etomidate IV and 100 milligrams of succinylcholine IV. The patient was intubated with a 8.0 cuffed endotracheal tube. Tube placement was confirmed by visualization of the tube and balloon passing through the cords, capnometry and subsequent chest x- ray. Breath sounds were equal and well aerated bilaterally postintubation. No breath sounds over stomach. Patient tolerated procedure well. Diagnosis Primary Impression: Suspected massive saddle embolus Additional Impressions: Acute hypoxemic respiratory failure Metabolic acidosis Cardiogenic shock Admitting Information Admitting Physician Requests: Admit Scripts Unable to Obtain Active Prescriptions or Reported Meds Randolph Cook MD February 28, 2018 00:45
== END 2018-02-27 13:34 | disposition expired | DRG 208 ==
LOC: NEPE 08:02 → NEDA 08:53 → HIMN 09:13
PROVIDERS: ADMIT Internal Medicine; ATTEND Internal Medicine
PROC: 5A1935Z Respiratory Ventilation, Less than 24 Consecutive Hours (ICD-10-PCS; principal; 2018-02-26)
PROC: 3E03317 Introduction of Other Thrombolytic into Peripheral Vein, Percutaneous Approach (ICD-10-PCS; 2018-02-26)
PROC: 0BH17EZ Insertion of Endotracheal Airway into Trachea, Via Natural or Artificial Opening (ICD-10-PCS; 2018-02-26)
PROC: 04HK33Z Insertion of Infusion Device into Right Femoral Artery, Percutaneous Approach (ICD-10-PCS; 2018-02-26)
PROC: 5A12012 Performance of Cardiac Output, Single, Manual (ICD-10-PCS; 2018-02-27)
DX: I26.99 Other pulmonary embolism without acute cor pulmonale (principal); I46.9 Cardiac arrest, cause unspecified; J96.01 Acute respiratory failure with hypoxia; J96.02 Acute respiratory failure with hypercapnia; G93.40 Encephalopathy, unspecified; N17.9 Acute kidney failure, unspecified; E87.2 Acidosis; R57.0 Cardiogenic shock; E11.9 Type 2 diabetes mellitus without complications
CPT/HCPCS: 31500; 71045; 80048; 80053; 81001; 82010; 82550; 82805; 83605; 83735; 83880; 84155; 84484; 85007; 85014; 85018; 85027; 85379; 85610; 86850; 86900; 86901; 86920; 87070; 87205; 87641; 92950; 93005; 93306; 93970; 94002; 94003; 94640; 94664; 94799; 95819; 99292; J0171; J1265; J1325; J1815; J1817; J2250; J2260; J2370; J7030; J7050; J7060; P9045